=== PATIENT | female | born 1960 | race Caucasian/White ===

== ENCOUNTER 2021-07-25 17:50 | Emergency (ER) | payer MEDICAID, MEDICARE ==
[~2021-07-25] VITALS: Ht 162.6 cm; Wt 91.4 kg
[~2021-07-25 17:50] MED LIST: AMLO1CAP6 PO; AMLO1CAP9 PO; ESTR1TAB15 PO; HYDR12.517 PO
[2021-07-25 19:02] LABS: BASOPHILS % (AUTO) 1 % (0-1); EOSINOPHILS % (AUTO) 2 % (1-7); LYMPHOCYTES % (AUTO) 22 % (22-44); MEAN CORPUSCULAR HEMOGLOBIN 31.4 pg (27.0-34.8); MEAN CORPUSCULAR HGB CONC 33.8 g/dL (32.4-35.8); MEAN PLATELET VOLUME 7.9 fL (7.4-10.4); MONOCYTES % (AUTO) 8 % (2-9); NEUTROPHILS % (AUTO) 66 % (42-75); PLATELET COUNT 282 x10^3/uL (130-400); RED BLOOD COUNT 3.98 x10^6/uL (3.82-5.3); RED CELL DISTRIBUTION WIDTH 14.1 % (9.6-15.2)
[2021-07-25 19:03] LABS: ANION GAP 3 mmol/L (5-15); CALCIUM 8.4 mg/dL (8.5-10.1); CHLORIDE 109 mmol/L (98-107)
[2021-07-25 19:08] LABS: ALANINE AMINOTRANSFERASE 92 U/L (12-78); ALKALINE PHOSPHATASE 108 U/L (45-117); BILIRUBIN,TOTAL 0.2 mg/dL (0.2-1.0); TOTAL PROTEIN 7.1 g/dL (6.4-8.2); TROPONIN I < 0.015 ng/mL (0.000-0.045)
--- NOTE | 2021-07-25 19:48 | NUR ---
CHILD CARE TEAM LEAD: PT. TO ROOM FROM LOBBY AT THIS TIME.
[2021-07-25 19:53] VITALS: BP 134/87
[2021-07-25] MEDS ORDERED: LITHIUM CARBONATE 300 MG CAPSULE PO ONE (20:30)
--- NOTE | 2021-07-25 20:49 | NUR ---
Genevieve and chips provided to pt.
== END 2021-07-25 21:00 | disposition home or self-care (01) ==
LOC: ED 20:50
DX: F41.1 Generalized anxiety disorder (principal); R07.89 Other chest pain; I44.0 Atrioventricular block, first degree; J44.9 Chronic obstructive pulmonary disease, unspecified; I10 Essential (primary) hypertension; F17.210 Nicotine dependence, cigarettes, uncomplicated
CPT/HCPCS: 36415; 71045; 80053; 84484; 85025; 93005; 99285